=== PATIENT | female | born 1990 | race Caucasian/White ===

== ENCOUNTER 2016-08-11 08:15 | Day surgery (SDC) | payer OTHER ==
[2016-08-10 12:03] VITALS: BMI 27.1
[~2016-08-11] VITALS: Ht 154.9 cm; Wt 64.9 kg
[2016-08-11] VITALS (9 sets, daily range): BP systolic 97–115; BP diastolic 59–73; PULSE 80–92; RESP 13–18; Ht 154.9 cm; Wt 64.9 kg
[~2016-08-11 08:15] MED LIST: FERR15DR19 PO; PREN1TAB17 PO
[2016-08-11 10:11] LABS: CALCIUM 9.1 mg/dl (8.4-10.2); CREATININE 0.43 mg/dl (0.44-1.00); POTASSIUM 3.8 mmol/L (3.5-5.1)
[2016-08-11] MEDS ORDERED: INDOMETHACIN 50 MG SUPP PR ONE ×2 (10:26→10:30)
[2016-08-11] MEDS ORDERED: IOHEXOL 300MG/ML 30 ML BTL ONE (10:26)
[2016-08-11] MEDS ORDERED: FENTAnyl 50 MCG/ML VIAL ONE (10:46)
[2016-08-11] MEDS ORDERED: MIDAZOLAM 1 MG/ML 2 ML INJ ONE (10:46)
[2016-08-11] MEDS ORDERED: METOCLOPRAMIDE 10 MG INJ ONE (10:55)
[2016-08-11] MEDS ORDERED: ROCURONIUM 50 MG INJ ONE (10:55)
[2016-08-11] MEDS ORDERED: PROPOFOL 20 ML ONE (10:55)
[2016-08-11] MEDS ORDERED: SUCCINYLCHOLINE CHLORIDE 100 MG/5 ML SYG IV ONE (10:55)
[2016-08-11] MEDS ORDERED: ONDANSETRON 4 MG INJ ONE (10:55)
[2016-08-11] MEDS ORDERED: DEXAMETHASONE 4 MG/ML 1 ML INJ ONE (10:56)
[2016-08-11] MEDS ORDERED: NEOSTIGMINE 3 MG/3 ML SYRINGE ONE (11:11)
[2016-08-11] MEDS ORDERED: GLYCOPYRROLATE 0.4 MG INJ ONE (11:11)
[2016-08-11] MEDS ORDERED: DIPHENHYDRAMINE 50 MG INJ IV PRN (11:30)
[2016-08-11] MEDS ORDERED: HYDROmorphONE (0.2 MG/ML) 10ML SYG IV PRN ×3 (11:30)
[2016-08-11] MEDS ORDERED: ONDANSETRON 4 MG INJ IV PRN (11:30)
[2016-08-11] MEDS ORDERED: EPHEDrine SULFATE 50 MG/5 ML SYG IV PRN (11:30)
[2016-08-11] MEDS ORDERED: MEPERIDINE 25 MG INJ IV PRN (11:30)
[2016-08-11] MEDS ORDERED: METOCLOPRAMIDE 10 MG INJ IV PRN (11:30)
[2016-08-11] MEDS ORDERED: morphine (1 MG/ML) 10ML SYRINGE IV PRN ×3 (11:30)
--- NOTE | 2016-08-11 11:43 | GILP ---
DATE OF PROCEDURE: 08/11/2016 NAME OF PROCEDURE: Endoscopic retrograde cholangiopancreatography. Removal of common bile duct meri nt. PREOPERATIVE DIAGNOSIS: Patient presenting with history of having ERCP done in the past. After rem oving the common duct stones and CBD stent was placed at that time. Now patient had cholecystectomy , CBD stent needs to be removed. POSTOPERATIVE DIAGNOSES: Common bile duct stent in place. Stent was removed. DESCRIPTION OF PROCEDURE: After the informed written consent was obtained, the patient was intubate d by anesthesiologist, Dr. Hawley. When the patient was in prone position, Olympus video side-view ing duodenoscope was inserted into the oropharynx, then into the esophagus and then into the stomach and then into the duodenum. The CBD stent was found to be in place. At this time, polypectomy sn are was inserted through the scope and the stent was grabbed with snare and then stent was removed t hrough the scope. At this time, stone extraction balloon was inserted into the common hepatic duct. Contrast was injected and the balloon was inflated, balloon sweeping was performed 3 times. No mo re filling defects noted. No sludge noted. Photographs were obtained and at this time, scope was w ithdrawn after taking the photographs and the procedure was terminated. PLAN: Recommend follow the liver functions as an outpatient periodically. Dictated By: DASIA WOODRUFF MD NC/NTS Conf#: [id number] DID#: [id number] CC: DASIA WOODRUFF MD;*EndCC*
--- NOTE | 2016-08-11 17:19 | RADRPT ---
PROCEDURE: Intraoperative imaging for ERCP with fluoroscopy. CLINICAL INDICATION: Right upper quadrant pain. Intraoperative. TECHNIQUE: 7 images of the right upper quadrant of the abdomen were obtained in the operating room with an image intensifier. No radiologist was in attendance. 52 seconds of fluoroscopy time was u sed. COMPARISON: No prior study is available for comparison. FINDINGS: Initial images demonstrate a common bile duct stent in satisfactory position. This was removed. Co ntrast was injected into the common bile duct and a balloon sweep was made. IMPRESSION: 1. ERCP as described above. RPTAT: QQ .Tim Morris MD, Date Time Electronically viewed and signed by .Tim Morris MD, on 08/11/2016 17:19 .R/
== END 2016-08-11 12:35 | disposition home or self-care (01) ==
LOC: SDS 08:15
PROVIDERS: ATTEND Internal Medicine Gastroenterology
DX: Z96.89 Presence of other specified functional implants (principal)
CPT/HCPCS: 43275; 74330; 80048; J0330; J1100; J2250; J2405; J2710; J2765; J3010; Q9967; Z7512; Z7610

== ENCOUNTER 2016-09-16 05:07 | Emergency (ER) | payer OTHER ==
[~2016-09-16] VITALS: Ht 154.9 cm; Wt 66.0 kg
[2016-09-16 05:10] VITALS: Ht 154.9 cm; Wt 66.0 kg
--- NOTE | 2016-09-16 05:55 | ERA ---
ER Documentation Chief Complaint Date/Time DATE: 09/16/16 TIME: 05:53 Chief Complaint foreign body on both ears"garlic" HPI 18-year-old female presenting with her family complaining of 4 hours status post foreign bodies (garlic) lodging into the ears bilaterally. Patient's ears were itching so she decided to put garlic in them later finding out that she could not get the garlic back out. Patient tried blowing nose to shoot garlic back out without success. Patient denies any other symptoms at this time. Patient denies dizziness, discharge, tinnitus, or any pain/itching in the ears. ROS All systems reviewed and are negative except as per history of present illness. Allergies Allergies: Coded Allergies: No Known Drug Allergies (Verified Allergy, Unknown, 02/10/16) PMhx/Soc History of Surgery: Yes Anesthesia Reaction: No Hx Neurological Disorder: No Hx Respiratory Disorders: No Hx Cardiac Disorders: No Hx Psychiatric Problems: No Hx Miscellaneous Medical Probl: No Hx Alcohol Use: No Hx Substance Use: No Hx Tobacco Use: No Physical Exam Vitals Vital Signs Date Time Temp Pulse Resp B/P Pulse Ox O2 Delivery O2 Flow Rate FiO2 09/16/16 05:10 97.8 101 20 117/74 98 Physical Exam Const: Overweight 26-year-old female presenting with family in no acute distress. Head: Atraumatic Eyes: Normal Conjunctiva ENT: Garlic impaction bilaterally;, Nose and Mouth have no obvious abnormalities. Neck: Full range of motion..~ No meningismus. Resp: Clear to auscultation bilaterally Cardio: Regular rate and rhythm, no murmurs Abd: Soft, non tender, non distended. Normal bowel sounds Skin: No petechiae or rashes Back: No midline or flank tenderness Ext: No cyanosis, or edema Neur: Awake and alert Psych: Normal Mood and Affect Procedures/MDM Patient initially used garlic to relieve itching of the ears bilaterally. Garlic was lodged in the ears bilaterally and the only attempt to get the garlic out was by blowing. There is removed and cleaned/lavaged both ears. Patient says that she feels better. There are no complications during the procedure per the nurse. Patient is stable and is ready to be discharged at this time. Departure Diagnosis: Primary Impression: Ear foreign body Qualified Code: T16.2XXA - Ear foreign body, left, initial encounter Additional Impression: Retained foreign body Condition: Stable Additional Instructions: Return to emergency department if new or worsening symptoms. KINGSLEY OTERO PA-C September 16, 2016 05:55
== END 2016-09-16 07:45 | disposition home or self-care (01) ==
LOC: FTE 05:07
DX: T16.2XXA Foreign body in left ear, initial encounter (principal); X58.XXXA Exposure to other specified factors, initial encounter; Y92.9 Unspecified place or not applicable
CPT/HCPCS: 99282